=== PATIENT | female | born 1960 | race Caucasian/White ===

== ENCOUNTER 2019-10-31 11:51 | Emergency (ER) | payer MEDICARE, OTHER ==
[~2019-10-31] VITALS: Ht 165.1 cm; Wt 58.5 kg
--- NOTE | 2019-10-31 12:10 | NUR ---
patient daniel from snf had an unwitnessed fall. Onr oom air, breathing evenly and unlabored. connected to the montior and pulse ox. kept comfortable, will continue to monitor accordingly.
--- NOTE | 2019-10-31 12:27 | NUR ---
wheeled patient via rney for ct scan
--- NOTE | 2019-10-31 12:45 | NUR ---
patient came back from ct
[2019-10-31] MEDS ORDERED: KETAMINE HCL(200MG/20ML) 10 MG/ML VIAL IV ONE (13:00)
--- NOTE | 2019-10-31 13:51 | NUR ---
CALLED [facility] FOR TRANSPORT TO [facility]. ETA 1530.
[2019-10-31 15:53] VITALS: BP 105/55
--- NOTE | 2019-10-31 15:53 | NUR ---
patient left via gurney accompanied by EMT in no distress going back to assisted living.
== END 2019-10-31 15:53 ==
LOC: ER 11:58
DX: R51 Headache (principal); M54.2 Cervicalgia; R07.89 Other chest pain; R10.2 Pelvic and perineal pain; I10 Essential (primary) hypertension; G20 Parkinson's disease; Z95.0 Presence of cardiac pacemaker; W18.09XA Striking against other object with subsequent fall, initial encounter; Y93.89 Activity, other specified; Y92.89 Other specified places as the place of occurrence of the external cause; Y99.8 Other external cause status
CPT/HCPCS: 70450; 71045; 72125; 72170; 99285; L0172

== ENCOUNTER 2021-11-18 12:52 | Inpatient (IN) | payer MEDICARE, OTHER ==
[~2021-11-18] VITALS: Ht 157.5 cm; Wt 67.6 kg
--- NOTE | 2021-11-18 13:01 | NUR ---
[facility] "generalized weakness this am Covid +Congestion". PLACED ON BED ABLE TO STAND WITH HELP, AAOX4, BREATHING EVEN AND UNLABORED, SHAKINESS, OF EXTREMITIES NOTED KNOWN HISTORY FO PARKINSONS DISEASE.
--- NOTE | 2021-11-18 13:10 | NUR ---
TECH AT BEDSIDE FOR EKG
--- NOTE | 2021-11-18 13:25 | NUR ---
IV LINE ESTABLISHED ON RAC #20, BLOOD DRAWN AND SENT TO LAB.
[2021-11-18] MEDS ORDERED: CARBIDOPA/LEVODOPA 25/100 MG 1 UDTAB PO SCH (13:30)
[2021-11-18 13:32] LABS: BASOPHILS % (AUTO) 0.8 % (0.0-2.0); EOSINOPHILS % (AUTO) 0.9 % (0.0-6.0); HEMATOCRIT 40 % (33-45); HEMOGLOBIN 13.5 g/dL (11.5-14.8); LYMPHOCYTES # (AUTO) 0.6 K/uL (0.8-4.8); LYMPHOCYTES % (AUTO) 14.1 % (20.0-44.0); MEAN CORPUSCULAR HGB CONC 34 g/dl (31.0-36.0); MEAN CORPUSCULAR VOLUME 97 fL (82-100); MONOCYTES # (AUTO) 0.7 K/uL (0.1-1.30); MONOCYTES % (AUTO) 15.1 % (2.0-12.0); NEUTROPHILS % (AUTO) 69.1 % (43.0-81.0); PLATELET COUNT (AUTO) 132 K/uL (150-450); RED BLOOD CELL COUNT(AUTO) 4.15 MIL/uL (4.0-5.2); WHITE BLOOD COUNT (AUTO) 4.3 K/uL (4.3-11.0)
[2021-11-18 13:40] LABS: CALCIUM, SERUM 8.6 mg/dL (8.5-10.1); CARBON DIOXIDE 32 mmol/L (21-32); CHLORIDE 103 mmol/L (98-107); CREATININE 0.8 mg/dL (0.6-1.3); GLUCOSE 92 mg/dL (74-106); POTASSIUM 3.3 mmol/L (3.5-5.1); SODIUM SERUM 140 mmol/L (136-145); UREA NITROGEN, BLOOD 12 mg/dL (7-18)
[2021-11-18 13:46] LABS: ALANINE AMINOTRANSFERASE 12 U/L (12-78); ALBUMIN 4.1 g/dL (3.4-5.0); ALKALINE PHOSPHATASE 114 U/L (46-116); ASPARTATE AMINOTRANSFERASE 13 U/L (15-37); BILIRUBIN,DIRECT 0.2 mg/dL (0.0-0.2); BILIRUBIN,TOTAL 1.2 mg/dL (0.2-1.0); TOTAL PROTEIN, SERUM 7.4 g/dL (6.4-8.2)
[2021-11-18] MEDS ORDERED: MELA3TAB41 PO (13:59)
[2021-11-18] MEDS ORDERED: ACET-868 PO (13:59)
[2021-11-18] MEDS ORDERED: CHOL100043 PO (13:59)
[2021-11-18] MEDS ORDERED: BISA10SU11 RC (13:59)
[2021-11-18] MEDS ORDERED: NAPR-1196 PO (13:59)
[2021-11-18] MEDS ORDERED: MAGN400O6 PO (13:59)
[2021-11-18] MEDS ORDERED: ESCI10TA PO (13:59)
[2021-11-18] MEDS ORDERED: AMAN100C16 PO (13:59)
[2021-11-18] MEDS ORDERED: METO-357 PO (13:59)
[2021-11-18] MEDS ORDERED: ARIP5TAB10 PO (13:59)
[2021-11-18] MEDS ORDERED: CARB1TAB21 PO (13:59)
[2021-11-18] MEDS ORDERED: SENN-261 PO (13:59)
[2021-11-18] MEDS ORDERED: TAMS-12 PO (13:59)
[2021-11-18] MEDS ORDERED: BACL10TA PO (13:59)
[2021-11-18] MEDS ORDERED: CLON0.5T4 PO (13:59)
[2021-11-18] MEDS ORDERED: POLY15DR40 EACHEYE (13:59)
[2021-11-18] MEDS ORDERED: CARB1TAB40 MT (13:59)
[2021-11-18] MEDS ORDERED: APIX5TAB PO (13:59)
[2021-11-18] MEDS ORDERED: AMIO200T5 PO (13:59)
[2021-11-18] MEDS ORDERED: GABA-532 PO (13:59)
[2021-11-18] MEDS ORDERED: NA P133E RC (13:59)
[2021-11-18] MEDS ORDERED: TRIH2TAB3 PO (13:59)
[2021-11-18] MEDS ORDERED: PROP10TA10 PO (13:59)
[2021-11-18] MEDS ORDERED: POLY17PO4 PO (13:59)
[2021-11-18] MEDS ORDERED: HYDR-4303 PO (13:59)
--- NOTE | 2021-11-18 14:02 | NUR ---
COVID SWAB COLLECTED AND SENT TO LAB.
[2021-11-18] MEDS ORDERED: ACETAMINOPHEN 325 MG TABLET PO PRN (15:00)
[2021-11-18] MEDS ORDERED: clonazePAM 0.5 MG TABLET PO PRN (15:00)
[2021-11-18] MEDS ORDERED: MAGNESIUM HYDROXIDE 30 ML UDC PO PRN ×2 (15:00)
[2021-11-18] MEDS ORDERED: BACLOFEN (10 MG) 10 MG TABLET PO PRN (15:00)
[2021-11-18] MEDS ORDERED: ONDANSETRON HCL/PF 4 MG/2 ML VIAL IVP PRN (15:00)
[2021-11-18] MEDS ORDERED: ZOLPIDEM TARTRATE 5 MG TABLET PO PRN (15:00)
[2021-11-18] MEDS ORDERED: Z GUARD REMEDY 4 OZ OINT TP PRN (15:00)
[2021-11-18] MEDS ORDERED: HYDROCODONE/APAP 5/325MG TABLET PO PRN (15:00)
[2021-11-18] MEDS ORDERED: MAG HYDROX/AL HYDROX/SIMETH 30 ML UDC PO PRN (15:00)
--- NOTE | 2021-11-18 15:54 | NUR ---
ROOM 107
--- NOTE | 2021-11-18 16:00 | NUR ---
PT REPORT GIVEN TO KARLA WAY.
--- NOTE | 2021-11-18 16:49 | NUR ---
PT TRANSFERRED TO UNIT VIA GURNEY VIA ACLS PROTOCOL.
--- NOTE | 2021-11-18 17:10 | NUR ---
RN NOTES RECEIVED PATIENT FROM EMERGENCY DEPT IN STABLE CONDITION. A/O X4. ON RA WITH NO SOB NOTED OR RESP DISTRESS. DENIES PAIN AT THIS TIME. R AC G#20 ACCESS INTACT AND PATENT. SKIN CLEAR AND INTACT. SAFETY PRECAUTIONS IN PLACE. WILL CARRY OUT ORDERS AND CONTINUE MONITORING PATIENT
[2021-11-18] MEDS: POLYETHYLENE GLYCOL 3350 17 GM POWD.PACK PO SCH (17:54)
[2021-11-18] MEDS: IV NS 0.9% 1,000 ML IV PRN (17:54)
[2021-11-18] MEDS: GABAPENTIN 100 MG CAPSULE PO SCH (17:54)
[2021-11-18] MEDS: CARBIDOPA/LEVODOPA 25/100 MG 1 UDTAB PO SCH ×2 (17:55→20:25)
[2021-11-18] MEDS: ARIPIPRAZOLE 5 MG TABLET PO SCH (17:55)
[2021-11-18] MEDS: SENNOSIDES 8.6 MG TABLET PO SCH (17:55)
[2021-11-18] MEDS: APIXABAN 5 MG TABLET PO SCH (17:56)
[2021-11-18] MEDS: CEFTRIAXONE 1 G in IV D5W 50 ML IV SCH (17:58)
[2021-11-18] MEDS: TRIHEXYPHENIDYL HCL 2 MG TABLET PO SCH (17:58)
--- NOTE | 2021-11-18 18:56 | NUR ---
RN CLOSING NOTES PATIENT STABLE ON RA. NO S/SX OF RESP DISTRESS NOTED. NO PAIN VERBALIZED AT THIS TIME. NF RUNNING @ 75ML/HR AT RIGHT AC G#20, TOLERATING WELL. SAFETY PRECAUTIONS IN PLACE. CONTACT AND ENHANCED DROPLET PRECAUTIONS MAINTAINED. WILL ENDORSE TO THE EXTRUSION LINE OPERATOR NURSE FOR ALESIA
--- NOTE | 2021-11-18 19:30 | NUR ---
MS RN OPENING NOTE RECEIVED PATIENT IN BED , AWAKE. PT IS A/O X 4. ABLE TO VERBALIZE NEEDS. CURRENTLY ON RA, TOLERATING WELL WITH NO SOB OR RESP DISTRESS NOTED AT THIS TIME. PT DENIES PAIN. IV ACCESS NOTED IN RAC #20g, INTACT AND PATENT, INFUSING NS @ 75 CC/HR. PT IS COVID (+). CONTACT AND ISOLATION PRECAUTIONS MAINTAINED. ALL SAFETY PRECAUTIONS IN PLACE: BED LOCKED IN LOW POSITION. BED ALARM ON. CALL LIGHT WITHIN REACH. WILL CONTINUE TO MONITOR FOR ANY CHANGES.
[2021-11-18 20:00] VITALS: BP 123/62
--- NOTE | 2021-11-18 20:15 | NUR ---
RN NOTE PT FEELS NAUSEOUS AND UNEASY. CHECKED VS, PT IS AFEBRILE AND VS ARE WNL. NO S/SX OF ACUTE DISTRESS NOTED. PT REQUESTED TYLENOL. GAVE MEDS ORDERED. KEPT HOB ELEVATED. WILL CONTINUE TO MONITOR PT.
[2021-11-18] MEDS: ACETAMINOPHEN 325 MG TABLET PO PRN (20:32)
[2021-11-18] MEDS ORDERED: PROPRANOLOL HCL 10 MG TABLET PO SCH (21:00)
[2021-11-18] MEDS: CARBIDOPA/LEV CR 50/200 MG 1 UDTAB.SA PO SCH (21:52)
[2021-11-18] MEDS: TAMSULOSIN 0.4 MG CAP.SR.24H PO SCH (21:53)
[2021-11-18] MEDS: AMANTADINE HCL 100 MG CAPSULE PO SCH (21:53)
--- NOTE | 2021-11-18 23:30 | NUR ---
RN NOTE DUE MEDS GIVEN. KEPT PT CLEAN AND DRY.
[2021-11-19 04:00] VITALS: BP 123/68
[2021-11-19] MEDS: CARBIDOPA/LEVODOPA 25/100 MG 1 UDTAB PO SCH ×5 (06:15→20:35)
--- NOTE | 2021-11-19 07:30 | NUR ---
NEON TUBE PUMPER CLOSING NOTE PT REMAINED STABLE THROUGHOUT THE SHIFT. NO SIGNIFICANT CHANGES NOTED. ON ROOM AIR, TOLERATING WELL. NO SIGNS OF ACUTE DISTRESS NOTED. PT IN ISOLATION AND CONTACT PRECAUTION. ALL SAFETY MEASURES MAINTAINED: BED LOCKED IN LOW POSITION. BED ALARM ON. CALL LIGHT WITHIN REACH. WILL ENDORSE TO AM SHIFT NURSE FOR ALESIA.
--- NOTE | 2021-11-19 07:44 | NUR ---
RN OPENING NOTE PATIENT AWAKE IN BED RESTING. A/O X 3-4. NO S/S OF PAIN NOTED AT THIS TIME. ON ROOM AIR, NO DISTRESS OR SHORTNESS OF BREATH NOTED. IV ACCESS RAC #20G, INTACT, PATENT AND FLUSHING WELL. FALL AND SAFETY MEASURES IN PLACE, BED ALARM ON, BED IN LOW AND LOCK POSITION, CALL LIGHT AND TABLE WITHIN EASY REACH, SIDE RAILS UP X2. WILL CONTINUE TO MONITOR.
[2021-11-19 08:00] VITALS: BP 113/62
[2021-11-19 08:14] LABS: BASOPHILS % (AUTO) 0.9 % (0.0-2.0); EOSINOPHILS % (AUTO) 1.1 % (0.0-6.0); HEMATOCRIT 39 % (33-45); HEMOGLOBIN 13.1 g/dL (11.5-14.8); LYMPHOCYTES # (AUTO) 0.7 K/uL (0.8-4.8); LYMPHOCYTES % (AUTO) 19.8 % (20.0-44.0); MEAN CORPUSCULAR HGB CONC 33 g/dl (31.0-36.0); MEAN CORPUSCULAR VOLUME 97 fL (82-100); MONOCYTES # (AUTO) 0.7 K/uL (0.1-1.30); MONOCYTES % (AUTO) 19.3 % (2.0-12.0); NEUTROPHILS # (AUTO) 2.1 K/uL (1.8-8.9); NEUTROPHILS % (AUTO) 58.9 % (43.0-81.0); PLATELET COUNT (AUTO) 125 K/uL (150-450); RED BLOOD CELL COUNT(AUTO) 4.02 MIL/uL (4.0-5.2); WHITE BLOOD COUNT (AUTO) 3.5 K/uL (4.3-11.0)
[2021-11-19 08:34] LABS: CALCIUM, SERUM 8.3 mg/dL (8.5-10.1); CREATININE 0.8 mg/dL (0.6-1.3); MAGNESIUM 2.4 mg/dL (1.8-2.4); PHOSPHORUS 4.1 mg/dL (2.5-4.9); POTASSIUM 3.3 mmol/L (3.5-5.1)
[2021-11-19] MEDS: AMIODARONE HCL 200 MG TABLET PO SCH (09:42)
[2021-11-19] MEDS: ARIPIPRAZOLE 5 MG TABLET PO SCH ×2 (09:43→16:19)
[2021-11-19] MEDS: SENNOSIDES 8.6 MG TABLET PO SCH ×2 (09:43→16:19)
[2021-11-19] MEDS: METOPROLOL SUCCINATE 50 MG TAB.SR.24H PO SCH (09:43)
[2021-11-19] MEDS: GABAPENTIN 100 MG CAPSULE PO SCH ×2 (09:44→16:19)
[2021-11-19] MEDS: ESCITALOPRAM OXALATE (10 MG) 10 MG TABLET PO SCH (09:44)
[2021-11-19] MEDS: AMANTADINE HCL 100 MG CAPSULE PO SCH ×2 (09:44→20:35)
[2021-11-19] MEDS: APIXABAN 5 MG TABLET PO SCH ×2 (09:46→16:21)
[2021-11-19] MEDS: TRIHEXYPHENIDYL HCL 2 MG TABLET PO SCH ×3 (09:47→16:19)
[2021-11-19] MEDS: PANTOPRAZOLE 40 MG TABLET.DR PO SCH (09:49)
[2021-11-19] MEDS ORDERED: POTASSIUM CHLORIDE 20 MEQ TAB.PRT.SR PO SCH (10:30)
[2021-11-19 11:00] LABS: BAND % (MANUAL) 2 % (0.0-5.0); LYMPHOCYTES % (MANUAL) 20 % (16-48); MONOCYTES % (MANUAL) 17 % (0-11.0); NEUTROPHILS % (MANUAL) 60 (42-76)
[2021-11-19 11:01] LABS: EOSINOPHILS % (MANUAL) 1 % (0-4)
[2021-11-19 12:00] VITALS: BP 113/62
[2021-11-19] MEDS: IV NS 0.9% 1,000 ML IV PRN (14:57)
[2021-11-19] MEDS ORDERED: GUAIFENESIN/D-METHORPHAN HB 5 ML UDC PO PRN (15:00)
[2021-11-19] MEDS: ACETAMINOPHEN 325 MG TABLET PO PRN (16:20)
[2021-11-19 16:39] VITALS: BP 124/68
[2021-11-19] MEDS: POLYETHYLENE GLYCOL 3350 17 GM POWD.PACK PO SCH (17:15)
[2021-11-19] MEDS: CEFTRIAXONE 1 G in IV D5W 50 ML IV SCH (17:15)
--- NOTE | 2021-11-19 18:00 | NUR ---
RN NOTE PATIENT REFUSED TO TAKE IV CEFTRIAXONE, PATIENT SAID HER BODY WAS FEELING LIKE BURNING. PATIENT REQUESTING TO BE CHANGE, DOCTOR WAS INFORMED, WAITING FOR DOCTOR RESPONSE. CHARGE NURSE AWARE.
--- NOTE | 2021-11-19 18:27 | NUR ---
RN CLOSING NOTE PATIENT AWAKE IN BED RESTING. A/O X 3-4. NO S/S OF PAIN NOTED AT THIS TIME. ON ROOM AIR, NO DISTRESS OR SHORTNESS OF BREATH NOTED. IV ACCESS RAC #20G, INTACT, PATENT AND FLUSHING WELL. SCHEDULE MEDICATION ADMINISTER EXCEPT FOR POLYETHYLENEY GLYCO AND CEFTRIAXONE, PATIENT REFUSED. FALL AND SAFETY MEASURES IN PLACE, BED ALARM ON, BED IN LOW AND LOCK POSITION, CALL LIGHT AND TABLE WITHIN EASY REACH, SIDE RAILS UP X2. WILL ENDORSE TO MAIL MANAGER.
--- NOTE | 2021-11-19 19:45 | NUR ---
RN NOTE RECEIVED PT AOX3, WATCHING FROM TABLET. DENIES ANY PAIN OR SOB AT THIS TIME. RAC IV PATENT AND INTACT, NS RUNNING AT 75ML/HR. ALL SAFETY MEASURES IN PLACE. WILL CONTINUE TO MONITOR.
[2021-11-19 20:00] VITALS: BP 128/68
[2021-11-19] MEDS: AZITHROMYCIN 250 MG TABLET PO SCH (20:35)
--- NOTE | 2021-11-19 21:12 | NUR ---
RN NOTE PT REQUESTING BENADRYL FOR STUFFY NOSE. NOTIFIED DR MARTINEZ, WITH NEW ORDER OF BENADRYL PRN.
[2021-11-19] MEDS ORDERED: diphenhydrAMINE HCL 25 MG CAPSULE PO PRN (21:30)
[2021-11-19] MEDS: TAMSULOSIN 0.4 MG CAP.SR.24H PO SCH (22:29)
[2021-11-19] MEDS: CARBIDOPA/LEV CR 50/200 MG 1 UDTAB.SA PO SCH (22:29)
[2021-11-20] MEDS: IV NS 0.9% 1,000 ML IV PRN (03:44)
[2021-11-20 04:00] VITALS: BP 121/67
[2021-11-20] MEDS: CARBIDOPA/LEVODOPA 25/100 MG 1 UDTAB PO SCH ×5 (06:35→21:47)
[2021-11-20] MEDS: PANTOPRAZOLE 40 MG TABLET.DR PO SCH (06:35)
--- NOTE | 2021-11-20 06:53 | NUR ---
RN NOTE PT ABLE TO MAKE NEEDS KNOWN, NO CHANGES IN LOC. TOLERATES ROOM AIR. DENIES SOB OR PAIN AT THIS TIME. CONTINUE WITH IVFLUIDS OF NS AT 75ML/HR, INFUSING WELL. REMAIN AFEBRILE. WILL ENDORSE TO NEXT SHIFT NURSE FOR ALESIA.
[2021-11-20 07:05] LABS: CREATININE 0.6 mg/dL (0.6-1.3); POTASSIUM 3.3 mmol/L (3.5-5.1)
--- NOTE | 2021-11-20 07:37 | NUR ---
RN OPEN NOTE RECEIVED PATIENT IN BED , AWAKE. PT IS ALERT , ORIENTED TIMES X 4. ABLE TO VERBALIZE NEEDS. CURRENTLY ON RA, TOLERATING WELL WITH NO SOB OR RESP DISTRESS PT DENIES ANY PAIN OR DISCOMFORT HAS IV ACCESS IN RAC #20g, INTACT AND PATENT WITH NS @ 75 CC/HR. PT IS COVID (+). CONTACT AND ISOLATION PRECAUTIONS MAINTAINED. ALL SAFETY PRECAUTIONS IN PLACE: BED LOCKED IN LOW POSITION. BED ALARM ON. CALL LIGHT WITHIN REACH. WILL CONTINUE TO MONITOR FOR ANY CHANGES.
[2021-11-20] MEDS: TRIHEXYPHENIDYL HCL 2 MG TABLET PO SCH ×3 (08:13→17:00)
[2021-11-20] MEDS: ESCITALOPRAM OXALATE (10 MG) 10 MG TABLET PO SCH (08:13)
[2021-11-20] MEDS: SENNOSIDES 8.6 MG TABLET PO SCH ×2 (08:13→16:58)
[2021-11-20] MEDS: ARIPIPRAZOLE 5 MG TABLET PO SCH ×2 (08:13→16:59)
[2021-11-20] MEDS: GABAPENTIN 100 MG CAPSULE PO SCH ×2 (08:14→17:01)
[2021-11-20] MEDS: AMIODARONE HCL 200 MG TABLET PO SCH (08:14)
[2021-11-20] MEDS: AZITHROMYCIN 250 MG TABLET PO SCH (08:14)
[2021-11-20] MEDS: METOPROLOL SUCCINATE 50 MG TAB.SR.24H PO SCH (08:15)
[2021-11-20] MEDS: APIXABAN 5 MG TABLET PO SCH ×2 (08:16→17:00)
[2021-11-20] MEDS: AMANTADINE HCL 100 MG CAPSULE PO SCH ×2 (08:18→21:47)
[2021-11-20] MEDS ORDERED: POTASSIUM CHLORIDE 20 MEQ TAB.PRT.SR PO SCH (10:00)
--- NOTE | 2021-11-20 10:00 | NUR ---
RN NOTES RECEIVED PT FROM [facility] FOR CONTINUITY OF CARE
--- NOTE | 2021-11-20 10:00 | NUR ---
RN NOTES RECEIVED PT FROM [facility] FOR CONTINUITY OF CARE
[2021-11-20 16:00] VITALS: BP 118/64
[2021-11-20] MEDS: POLYETHYLENE GLYCOL 3350 17 GM POWD.PACK PO SCH (17:01)
--- NOTE | 2021-11-20 18:00 | NUR ---
RN NOTES PT OUT OF BED TO BATHROOM SEVERAL TIMES TODAY, VOIDING AND BMx2, VSS STABLE , NO SIGNFICANT CHANGES NOTED ON THIS SHIFT , WILL ENDORSE TO HAND CLOTH FOLDER NURSE FOR CONTINUITY OF CARE.
[2021-11-20 20:00] VITALS: BP 131/70
--- NOTE | 2021-11-20 20:00 | NUR ---
RN NOTE RECEIVED PT AWAKE, AOX3. DENIES ANY PAIN OR SOB AT THIS TIME. RAC IV PATENT AND INTACT, NS RUNNING AT 75ML/HR. ALL SAFETY MEASURES IN PLACE. WILL CONTINUE TO MONITOR.
[2021-11-20] MEDS: CARBIDOPA/LEV CR 50/200 MG 1 UDTAB.SA PO SCH (21:47)
[2021-11-20] MEDS: TAMSULOSIN 0.4 MG CAP.SR.24H PO SCH (21:47)
[2021-11-21] MEDS: IV NS 0.9% 1,000 ML IV PRN (02:03)
[2021-11-21 04:00] VITALS: BP 136/76
[2021-11-21] MEDS: CARBIDOPA/LEVODOPA 25/100 MG 1 UDTAB PO SCH ×3 (06:32→14:20)
[2021-11-21] MEDS: PANTOPRAZOLE 40 MG TABLET.DR PO SCH (06:32)
--- NOTE | 2021-11-21 07:26 | NUR ---
RN NOTE PT ABLE TO MAKE NEEDS KNOWN, NO CHANGES IN LOC. TOLERATES ROOM AIR. DENIES SOB OR PAIN AT THIS TIME. CONTINUE WITH IVFLUIDS OF NS AT 75ML/HR, INFUSING WELL. REMAIN AFEBRILE. ENDORSED TO NEXT SHIFT NURSE FOR ALESIA
[2021-11-21] MEDS: METOPROLOL SUCCINATE 50 MG TAB.SR.24H PO SCH (09:00)
[2021-11-21] MEDS: TRIHEXYPHENIDYL HCL 2 MG TABLET PO SCH ×2 (09:20→12:46)
[2021-11-21] MEDS: AZITHROMYCIN 250 MG TABLET PO SCH (09:20)
[2021-11-21] MEDS: ARIPIPRAZOLE 5 MG TABLET PO SCH (09:21)
[2021-11-21] MEDS: GABAPENTIN 100 MG CAPSULE PO SCH (09:21)
[2021-11-21] MEDS: ESCITALOPRAM OXALATE (10 MG) 10 MG TABLET PO SCH (09:21)
[2021-11-21] MEDS: SENNOSIDES 8.6 MG TABLET PO SCH (09:22)
[2021-11-21] MEDS: AMIODARONE HCL 200 MG TABLET PO SCH (09:22)
[2021-11-21] MEDS: APIXABAN 5 MG TABLET PO SCH (09:23)
--- NOTE | 2021-11-21 09:23 | NUR ---
HELD METOPROLOL DUE TO HR WAS 54
[2021-11-21] MEDS: AMANTADINE HCL 100 MG CAPSULE PO SCH (09:25)
--- NOTE | 2021-11-21 09:35 | NUR ---
MD COMMUNICATION RN SPOKE TO DR MARTINEZ ABOUT PT'S REPORT OF DIARRHEA. GAVE ORDERS: IMODIUM 2MG PO PRN Q4H. RN ACKNOWLEDGED AND WILL CARRY OUT ORDERS.
[2021-11-21] MEDS ORDERED: LOPERAMIDE HCL (2 MG CAP) 2 MG CAPSULE PO PRN (10:00)
[2021-11-21 12:00] VITALS: BP 107/50
--- NOTE | 2021-11-21 12:40 | NUR ---
Discharge Note: Report given to KARLA Mccarty. @ [facility]. Continued plan of care discussed. Dr Rasheed will continue to follow patient at receiving facility. [facility]. All Patient questions and concerns addressed.
--- NOTE | 2021-11-21 13:28 | NUR ---
RN Note: Notified Pt family: Nemo (Sister) [phone]. Regarding Transfer back to [facility]. Updated sister of pt plan of care upon discharge to SNF
--- NOTE | 2021-11-21 14:30 | NUR ---
DISCHARGE PT DISCHARGED TO SNF PER MD ORDER. PT IS A&OX4, BREATHING EVEN AND UNLABORED ON RA AND CURRENTLY ENDORSES NO PAIN. REPORT GIVEN TO [facility]. PT LEFT VIA GURNEY. ID REMOVED. IV REMOVED. BELONGINGS CHECKED AND ACCOUNTED. PT DISCHARGED IN STABLE CONDITION.
== END 2021-11-21 14:43 | DRG 178 ==
LOC: ER 13:00 → MEDSG1 16:36
PROVIDERS: ADMIT Legal Medicine; ATTEND Legal Medicine
DX: U07.1 COVID-19 (principal); I48.92 Unspecified atrial flutter; I10 Essential (primary) hypertension; F32.9 Major depressive disorder, single episode, unspecified; I48.91 Unspecified atrial fibrillation; G20 Parkinson's disease; Z79.01 Long term (current) use of anticoagulants; Z79.899 Other long term (current) drug therapy; F41.9 Anxiety disorder, unspecified; J98.8 Other specified respiratory disorders
CPT/HCPCS: 36415; 71045-TC; 80048-TC; 80061-TC; 80076-TC; 83540-TC; 83605-TC; 83735-TC; 84100-TC; 84484-TC; 85025-TC; 85378-TC; 85730-TC; 86140-TC; 87040-TC; 87081-TC; 97110-TC; 97112-TC; 97530-TC; G0378; J0696; J7030; J7060; Q0163; U0003

== ENCOUNTER 2022-05-06 00:39 | Emergency (ER) | payer MEDICARE, OTHER ==
[~2022-05-06] VITALS: Ht 157.5 cm; Wt 71.2 kg
[~2022-05-06 00:39] MED LIST: ACET-868 PO; AMAN100C16 PO; AMIO200T5 PO; APIX5TAB PO; ARIP5TAB10 PO; BACL10TA PO; BISA10SU11 RC; CARB1TAB21 PO; CARB1TAB40 MT; CHOL100043 PO; CLON0.5T4 PO; ESCI10TA PO; GABA-532 PO; HYDR-4303 PO; MAGN400O6 PO; MELA3TAB41 PO; METO-357 PO; NA P133E RC; NAPR-1196 PO; POLY15DR40 EACHEYE; POLY17PO4 PO; PROP10TA10 PO; SENN-261 PO; TAMS-12 PO; TRIH2TAB3 PO
--- NOTE | 2022-05-06 01:25 | NUR ---
ENDY FROM SNF FOR C/O L SIDED H/A WITH A BUMP S/P FALL FROM BED, -KO. PATIENT IS AAOX4. WITH RESTING TREMOR . PATIENT PAIN SCORE IS 5/10. PLACED COMFORTABLY IN BED. VITALS CHECKED.
--- NOTE | 2022-05-06 04:53 | NUR ---
CALLED [facility] FOR TRANSPORTATION ETA IS 15-20 MINS
--- NOTE | 2022-05-06 05:34 | NUR ---
ATTEMPTED TO GIVE REPORT, NO DIRECTOR OF DIGITAL PLATFORMS
--- NOTE | 2022-05-06 05:35 | NUR ---
REPORT GIVEN TO EMT TA OF [facility]. [facility]
[2022-05-06 05:36] VITALS: BP 131/66
== END 2022-05-06 05:37 ==
LOC: ER 00:40
DX: S09.90XA Unspecified injury of head, initial encounter (principal); G20 Parkinson's disease; I10 Essential (primary) hypertension; I48.92 Unspecified atrial flutter; Z79.899 Other long term (current) drug therapy; W06.XXXA Fall from bed, initial encounter; Y93.89 Activity, other specified; Y92.89 Other specified places as the place of occurrence of the external cause; Y99.8 Other external cause status
CPT/HCPCS: 70450-TC; 72125-TC

== ENCOUNTER 2023-04-17 02:38 | Emergency (ER) | payer MEDICARE, OTHER ==
[~2023-04-17] VITALS: Ht 157.5 cm; Wt 66.2 kg
[2023-04-17 06:21] VITALS: BP 104/61; TEMP 98.1; O2SAT 98
== END 2023-04-17 06:22 ==
LOC: ER 02:45
DX: S83.8X2A Sprain of other specified parts of left knee, initial encounter (principal); S83.8X1A Sprain of other specified parts of right knee, initial encounter; S70.02XA Contusion of left hip, initial encounter; S70.01XA Contusion of right hip, initial encounter; I10 Essential (primary) hypertension; I48.91 Unspecified atrial fibrillation; F20.9 Schizophrenia, unspecified; Z79.899 Other long term (current) drug therapy; W06.XXXA Fall from bed, initial encounter; Y93.89 Activity, other specified; Y92.89 Other specified places as the place of occurrence of the external cause; Y99.8 Other external cause status
CPT/HCPCS: 72170-TC; 73564-TC

== ENCOUNTER 2023-06-10 10:46 | Inpatient (IN) | payer MEDICARE, OTHER ==
[~2023-06-10] VITALS: Ht 157.5 cm; Wt 66.2 kg
[~2023-06-10 10:46] MED LIST changes: -CARB1TAB40 MT; +CARB1TAB40 PO
[2023-06-10 12:33] LABS: BASOPHILS # (AUTO) 0.1 K/uL (0.0-0.2); BASOPHILS % (AUTO) 1.2 % (0.0-2.0); EOSINOPHILS # (AUTO) 0.2 K/uL (0.0-0.7); HEMATOCRIT 39 % (33-45); HEMOGLOBIN 13.2 g/dL (11.5-14.8); LYMPHOCYTES # (AUTO) 1.5 K/uL (0.8-4.8); LYMPHOCYTES % (AUTO) 25.6 % (20.0-44.0); MEAN CORPUSCULAR HEMOGLOBIN 32 PG (26.0-33.0); MEAN CORPUSCULAR HGB CONC 34 g/dl (31.0-36.0); MEAN CORPUSCULAR VOLUME 95 fL (82-100); MONOCYTES # (AUTO) 0.5 K/uL (0.1-1.30); MONOCYTES % (AUTO) 8.5 % (2.0-12.0); NEUTROPHILS # (AUTO) 3.5 K/uL (1.8-8.9); NEUTROPHILS % (AUTO) 61.7 % (43.0-81.0); PLATELET COUNT (AUTO) 214 K/uL (150-450); RED BLOOD CELL COUNT(AUTO) 4.14 MIL/uL (4.0-5.2); WHITE BLOOD COUNT (AUTO) 5.7 K/uL (4.3-11.0)
[2023-06-10 12:51] LABS: ALANINE AMINOTRANSFERASE < 6 U/L (12-78); ALBUMIN 3.7 g/dL (3.4-5.0); ALCOHOL, BLOOD < 3 mg/dL (0-10); ALKALINE PHOSPHATASE 116 U/L (46-116); ASPARTATE AMINOTRANSFERASE 10 U/L (15-37); BILIRUBIN,DIRECT 0.2 mg/dL (0.0-0.2); BILIRUBIN,TOTAL 1.2 mg/dL (0.2-1.0); CARBON DIOXIDE 31 mmol/L (21-32); CHLORIDE 104 mmol/L (98-107); CREATININE 0.7 mg/dL (0.6-1.3); GLUCOSE 93 mg/dL (74-106); POTASSIUM 3.3 mmol/L (3.5-5.1); SERUM AMMONIA < 10 umol/L (11-32); SODIUM SERUM 141 mmol/L (136-145); TOTAL PROTEIN, SERUM 6.6 g/dL (6.4-8.2); UREA NITROGEN, BLOOD 11 mg/dL (7-18)
[2023-06-10 13:00] LABS: THYROID STIMULATING HORMONE 1.949 uIU/mL (0.358-3.74)
[2023-06-10] MEDS ORDERED: RASA1TAB4 PO (13:48)
[2023-06-10] MEDS ORDERED: PYRI100T18 PO (13:48)
[2023-06-10] MEDS ORDERED: CRAN425C6 PO (13:48)
[2023-06-10] MEDS ORDERED: NAPROXEN 250 MG TABLET PO PRN (14:30)
[2023-06-10] MEDS ORDERED: MAG HYDROX/AL HYDROX/SIMETH 30 ML UDC PO PRN (14:30)
[2023-06-10] MEDS ORDERED: Z GUARD REMEDY 4 OZ OINT TP PRN (14:30)
[2023-06-10] MEDS ORDERED: ONDANSETRON HCL/PF 4 MG/2 ML VIAL IVP PRN (14:30)
[2023-06-10] MEDS ORDERED: ZOLPIDEM TARTRATE 5 MG TABLET PO PRN (14:30)
[2023-06-10] MEDS ORDERED: MAGNESIUM HYDROXIDE 30 ML UDC PO PRN ×2 (14:30)
[2023-06-10] MEDS ORDERED: ACETAMINOPHEN 325 MG TABLET PO PRN (14:30)
[2023-06-10] MEDS ORDERED: LEVOFLOXACIN 500 MG /D5W 100ML 100 ML IV ONE (14:45)
[2023-06-10] MEDS ORDERED: ENOXAPARIN SODIUM 40 MG/0.4 ML DISP.SYRIN SQ SCH (15:00)
[2023-06-10] MEDS: LEVOFLOXACIN 500 MG /D5W 100ML 500 MG/100 ML PIGGYBACK IV ONE (15:05)
[2023-06-10 15:51] LABS: APPEARANCE,URINE CLEAR (CLEAR); BILIRUBIN,URINE NEGATIVE (NEGATIVE); BLOOD, URINE NEGATIVE Ery/uL (NEGATIVE); COLOR,URINE YELLOW (YELLOW); KETONES,URINE TRACE mg/dL (NEGATIVE); LEUKOCYTE ESTERASE ,URINE NEGATIVE (NEGATIVE); NITRITE, URINE NEGATIVE (NEGATIVE); PROTEIN,URINE NEGATIVE (NEGATIVE); UGLUCOSE NEGATIVE (NEGATIVE); UROBILINOGEN,URINE 0.2 EU/dL (0.2)
[2023-06-10 16:10] LABS: AMPHETAMINE, URINE NEGATIVE (NEGATIVE); BARBITURATE, URINE NEGATIVE (NEGATIVE); BENZODIAZEPINE, URINE NEGATIVE (NEGATIVE); CANNABINOID, URINE NEGATIVE (NEGATIVE); COCCAINE, URINE NEGATIVE (NEGATIVE); PHENCYCLIDINE SCREEN,URINE NEGATIVE (NEGATIVE)
[2023-06-10 16:27] LABS: OPIATE, URINE POSITIVE (NEGATIVE)
[2023-06-10 17:08] LABS: ADD URINE CULTURE NO; BACTERIA,URINE None seen /HPF (None Seen); RBC,URINE 0-2 /HPF (0-2); SQUAMOUS EPITHELIAL CELL,UR 0-2 /HPF (None Seen); WBC,URINE 0-2 /HPF (0-3)
[2023-06-10 17:26] VITALS: BP 146/73; TEMP 98.6; O2SAT 97
[2023-06-10] MEDS: ARIPIPRAZOLE 5 MG TABLET PO SCH (18:44)
[2023-06-10] MEDS: TRIHEXYPHENIDYL HCL 2 MG TABLET PO SCH (18:44)
[2023-06-10] MEDS: APIXABAN 5 MG TABLET PO SCH (18:46)
[2023-06-10] MEDS: GABAPENTIN 100 MG CAPSULE PO SCH (18:48)
[2023-06-10] MEDS: SENNOSIDES 8.6 MG TABLET PO SCH (18:48)
[2023-06-10] MEDS: CARBIDOPA/LEVODOPA 25/100 MG 1 UDTAB PO SCH (18:49)
[2023-06-10] MEDS: AMANTADINE HCL 100 MG CAPSULE PO SCH (18:49)
[2023-06-10] MEDS: POLYETHYLENE GLYCOL 3350 17 GM POWD.PACK PO SCH (18:49)
[2023-06-10] MEDS: IV D5/0.45 NACL 1,000 ML IV PRN (19:52)
[2023-06-10 20:00] VITALS: BP 128/72; TEMP 98; O2SAT 97
[2023-06-10] MEDS: CARBIDOPA/LEV CR 50/200 MG 1 UDTAB.SA PO SCH (22:02)
[2023-06-11 05:24] VITALS: BP 123/85; TEMP 98.2; O2SAT 98
[2023-06-11] MEDS: HYDROCODONE/APAP 5/325MG TABLET PO PRN (05:48)
[2023-06-11 06:48] LABS: BASOPHILS % (AUTO) 0.7 % (0.0-2.0); EOSINOPHILS # (AUTO) 0.2 K/uL (0.0-0.7); HEMATOCRIT 40 % (33-45); HEMOGLOBIN 13.7 g/dL (11.5-14.8); LYMPHOCYTES # (AUTO) 1.8 K/uL (0.8-4.8); LYMPHOCYTES % (AUTO) 29.8 % (20.0-44.0); MEAN CORPUSCULAR HEMOGLOBIN 33 PG (26.0-33.0); MEAN CORPUSCULAR HGB CONC 34 g/dl (31.0-36.0); MEAN CORPUSCULAR VOLUME 96 fL (82-100); MONOCYTES # (AUTO) 0.5 K/uL (0.1-1.30); MONOCYTES % (AUTO) 8.6 % (2.0-12.0); NEUTROPHILS # (AUTO) 3.4 K/uL (1.8-8.9); NEUTROPHILS % (AUTO) 57.9 % (43.0-81.0); PLATELET COUNT (AUTO) 211 K/uL (150-450); RED BLOOD CELL COUNT(AUTO) 4.17 MIL/uL (4.0-5.2); RED CELL DISTRIBUTION WIDTH 13.8 % (11.5-15.0); WHITE BLOOD COUNT (AUTO) 5.9 K/uL (4.3-11.0)
[2023-06-11 07:13] LABS: CREATININE 0.8 mg/dL (0.6-1.3); MAGNESIUM 2.2 mg/dL (1.8-2.4)
[2023-06-11] MEDS ORDERED: ESCITALOPRAM OXALATE (10 MG) 10 MG TABLET PO SCH (09:00)
[2023-06-11] MEDS: METOPROLOL SUCCINATE 50 MG TAB.SR.24H PO SCH (09:00)
[2023-06-11] MEDS ORDERED: Medication Not On Formulary EA (Rasagiline Mesylate 1 MG) PO SCH (09:00)
[2023-06-11] MEDS: clonazePAM 0.5 MG TABLET PO PRN (10:11)
[2023-06-11] MEDS: ACETAMINOPHEN 325 MG TABLET PO PRN (10:47)
[2023-06-11 20:00] VITALS: BP 124/95; TEMP 98.4; O2SAT 100
[2023-06-11] MEDS: BACLOFEN (10 MG) 10 MG TABLET PO PRN (21:17)
[2023-06-12 04:00] VITALS: BP 111/91; TEMP 97.7; O2SAT 100
[2023-06-12 08:00] VITALS: BP 131/78; TEMP 98.1; O2SAT 97
[2023-06-12 08:13] LABS: BASOPHILS # (AUTO) 0.1 K/uL (0.0-0.2); BASOPHILS % (AUTO) 1.1 % (0.0-2.0); EOSINOPHILS # (AUTO) 0.1 K/uL (0.0-0.7); EOSINOPHILS % (AUTO) 2.1 % (0.0-6.0); HEMATOCRIT 41 % (33-45); HEMOGLOBIN 13.8 g/dL (11.5-14.8); LYMPHOCYTES # (AUTO) 1.3 K/uL (0.8-4.8); LYMPHOCYTES % (AUTO) 21.2 % (20.0-44.0); MEAN CORPUSCULAR HEMOGLOBIN 32 PG (26.0-33.0); MEAN CORPUSCULAR HGB CONC 34 g/dl (31.0-36.0); MEAN CORPUSCULAR VOLUME 95 fL (82-100); MONOCYTES # (AUTO) 0.4 K/uL (0.1-1.30); MONOCYTES % (AUTO) 6.6 % (2.0-12.0); NEUTROPHILS # (AUTO) 4.1 K/uL (1.8-8.9); PLATELET COUNT (AUTO) 223 K/uL (150-450); RED BLOOD CELL COUNT(AUTO) 4.29 MIL/uL (4.0-5.2); RED CELL DISTRIBUTION WIDTH 13.6 % (11.5-15.0); WHITE BLOOD COUNT (AUTO) 5.9 K/uL (4.3-11.0)
[2023-06-12 08:27] LABS: CALCIUM, SERUM 9.3 mg/dL (8.5-10.1); CREATININE 0.8 mg/dL (0.6-1.3)
[2023-06-12 16:00] VITALS: BP 90/50; TEMP 98; O2SAT 96
[2023-06-12 20:00] VITALS: BP 134/77; TEMP 97.8; O2SAT 98
[2023-06-13 04:00] VITALS: BP 138/81; TEMP 98.3; O2SAT 95
[2023-06-13 07:04] LABS: BASOPHILS # (AUTO) 0.1 K/uL (0.0-0.2); BASOPHILS % (AUTO) 0.8 % (0.0-2.0); EOSINOPHILS # (AUTO) 0.2 K/uL (0.0-0.7); HEMATOCRIT 38 % (33-45); HEMOGLOBIN 12.9 g/dL (11.5-14.8); LYMPHOCYTES # (AUTO) 1.4 K/uL (0.8-4.8); LYMPHOCYTES % (AUTO) 16.1 % (20.0-44.0); MEAN CORPUSCULAR HEMOGLOBIN 32 PG (26.0-33.0); MEAN CORPUSCULAR HGB CONC 34 g/dl (31.0-36.0); MEAN CORPUSCULAR VOLUME 95 fL (82-100); MONOCYTES # (AUTO) 0.5 K/uL (0.1-1.30); MONOCYTES % (AUTO) 5.5 % (2.0-12.0); NEUTROPHILS # (AUTO) 6.7 K/uL (1.8-8.9); NEUTROPHILS % (AUTO) 75.6 % (43.0-81.0); PLATELET COUNT (AUTO) 197 K/uL (150-450); RED BLOOD CELL COUNT(AUTO) 3.99 MIL/uL (4.0-5.2); RED CELL DISTRIBUTION WIDTH 13.5 % (11.5-15.0); WHITE BLOOD COUNT (AUTO) 8.9 K/uL (4.3-11.0)
[2023-06-13 07:07] LABS: CALCIUM, SERUM 8.6 mg/dL (8.5-10.1); CREATININE 0.7 mg/dL (0.6-1.3); POTASSIUM 3.6 mmol/L (3.5-5.1)
[2023-06-13] MEDS: ENSURE ENLIVE 237 ML LIQUID (VANILLA) PO SCH (08:48)
[2023-06-13 09:02] VITALS: BP 125/67; TEMP 98.2; O2SAT 95
[2023-06-13 17:01] VITALS: BP 110/62; TEMP 98; O2SAT 96
== END 2023-06-13 19:25 | DRG 640 ==
LOC: ER 10:56 → TELE1 15:54 → MEDSG1 17:30 → TELE1 22:40 → MEDSG1 06-11 08:08
PROVIDERS: ADMIT Legal Medicine; ATTEND Legal Medicine
DX: E86.0 Dehydration (principal); G92.8 Other toxic encephalopathy; F02.818 Dementia in other diseases classified elsewhere, unspecified severity, with other behavioral disturbance; I48.92 Unspecified atrial flutter; N39.0 Urinary tract infection, site not specified; I10 Essential (primary) hypertension; I48.91 Unspecified atrial fibrillation; Z20.822 Contact with and (suspected) exposure to COVID-19; Z91.81 History of falling; G20.A1 Parkinson's disease without dyskinesia, without mention of fluctuations; F02.80 Dementia in other diseases classified elsewhere, unspecified severity, without behavioral disturbance, psychotic disturbance, mood disturbance, and anxiety; G62.9 Polyneuropathy, unspecified; G89.29 Other chronic pain; F20.9 Schizophrenia, unspecified; Z79.899 Other long term (current) drug therapy; Z79.01 Long term (current) use of anticoagulants; Z91.041 Radiographic dye allergy status; Z88.1 Allergy status to other antibiotic agents
CPT/HCPCS: 36415; 70450-TC; 71045-TC; 72125-TC; 80048-TC; 80076-TC; 81001; 82140-TC; 82962-TC; 83735-TC; 84443-TC; 84484-TC; 85025-TC; 87081-TC; 97112-TC; 97116-TC; 97530-TC; A4223; G0378; G0480; J1956; J3490; J7030